=== PATIENT | female | born 1990 | race Caucasian/White ===

== ENCOUNTER 2018-12-23 00:05 | Emergency (ER) | payer SELFPAY ==
[~2018-12-23] VITALS: Ht 160 cm; Wt 68.0 kg
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
--- NOTE | 2018-12-23 00:30 | NUR ---
PATIENT BIB [place] [employer]. PATIENT EXAMINED BY DR. LOPEZ. PATIENT MEDICALLY CLEARED AND RELEASED IN CUSTODY IN STABLE CONDITION. ORIGINAL PRE-BOOK FORM GIVEN TO OFFICER ROSEMARY #[id number].
== END 2018-12-23 00:30 ==
LOC: MED 00:05
DX: F10.129 Alcohol abuse with intoxication, unspecified (principal)
CPT/HCPCS: 99283